=== PATIENT | male | born 1970 | race Caucasian/White ===

== ENCOUNTER 2017-12-04 17:23 | Emergency (ER) | payer SELFPAY ==
[~2017-12-04] VITALS: Ht 162.6 cm; Wt 68.0 kg
[2017-12-04 17:28] VITALS: BP 147/92; PULSE 119; RESP 20; TEMP 98.2; O2SAT 98
[2017-12-04 17:36] VITALS: BP 150/91; PULSE 93; RESP 17; TEMP 98.5; O2SAT 100
[2017-12-04] MEDS ORDERED: ceFAZolin 2 GM PREMIX 50 ML IV ONE (17:45)
[2017-12-04] MEDS ORDERED: LIDOCAINE HCL 1% 30 ML VIAL INFIL ONE (17:45)
[2017-12-04] MEDS ORDERED: MORPHINE SULFATE 4 MG/ML INJ IV PUSH ONE (17:45)
[2017-12-04] MEDS ORDERED: TETANUS/DIPHTHERIA TOXOID ADULT 0.5 ML VIAL IM ONE (17:45)
[2017-12-04] MEDS ORDERED: BUPIVACAINE HCL PF 0.5% 30 ML VIAL INFIL ONE (17:45)
[2017-12-04] MEDS ORDERED: ONDANSETRON HCL 4 MG/2 ML VIAL IV PUSH ONE (17:45)
[2017-12-04] MEDS ORDERED: SODIUM CHLOR 0.9% 1000 ML INJ 1,000 ML IV ONE (17:51)
[2017-12-04] MEDS ORDERED: ceFAZolin 2 GM PREMIX 50 ML ONE (18:11)
[2017-12-04] MEDS ORDERED: LIDOCAINE HCL 1% PF 30 ML VIAL ONE (18:11)
--- NOTE | 2017-12-04 18:49 | PD ---
HPI . Hand injury Chief Complaint: Injury Time Seen by Provider: 17:39 Travel History International Travel<30 days: No Contact w/Intl Traveler<30days: No Traveled to known affect area: No History of Present Illness HPI This patient presents status post an injury to his right the blade still growing. He is unable to tell us the date of his last tetanus shot. He reports no known drug allergies. The incident occurred just prior to presentation. Pain is initially 7/10. PFSH Past Medical History Medical History: Denies Significant Hx Diminished Hearing: No Tetanus Vaccination: > 5 Years Influenza Vaccination: No Past Surgical History Surgical History: No Previous Surgery Social History Alcohol Use: Yes (Rare) Tobacco Use: No Substance Use: No Allergies-Medications (Allergen,Severity, Reaction): Coded Allergies: No Known Allergies (Unverified , 12/04/17) Reported Meds & Prescriptions Reported Meds & Active Scripts Active No Active Prescriptions or Reported Medications Review of Systems Except as stated in HPI: all other systems reviewed are Neg Physical Exam Narrative GENERAL: Awake and alert and in no acute distress. SKIN: Warm and dry. HEAD: Normocephalic/atraumatic. EYES: Pupils are equal. Extraocular movements are intact. NECK: Normal range of motion. RESPIRATORY: Nonlabored respirations. MUSCULOSKELETAL: The tips of the right third and fourth fingers are amputated. I do not believe that there is any bony involvement NEUROLOGICAL: Nonfocal. PSYCHIATRIC: Appropriate mood and affect. Data Data Last Documented VS Vital Signs Date Time Temp Pulse Resp B/P (MAP) Pulse Ox O2 Delivery O2 Flow Rate FiO2 12/04/17 18:21 17 12/04/17 17:36 98.5 93 150/91 (110) 100 12/04/17 17:36 Room Air Orders Orders Lidocaine 1% Inj (Xylocaine 1% Inj) (12/04/17 17:45) Bupivacaine Pf 0.5% Inj (Marcaine Pf 0.5 (12/04/17 17:45) ^ Saline Lock (12/04/17 17:40) Ondansetron Inj (Zofran Inj) (12/04/17 17:45) Tetanus/Diphtheria Tox Adult (Tetanus/Di (12/04/17 17:45) Morphine Inj (Morphine Inj) (12/04/17 17:45) Cefazolin 2 Gm Premix (Ancef 2 Gm Premix (12/04/17 17:45) Diet Npo (12/04/17 Dinner) Activity Bed Rest (12/04/17 ) Electrocardiogram (12/04/17 ) Neuro Checks Q2HX12,Q4H (12/04/17 17:51) Nursing Bedside Swallow Assess .ONCE (12/04/17 17:51) Resp Oxygen Nc Stroke (12/04/17 ) Sodium Chlor 0.9% 1000 Ml Inj (Ns 1000 M (12/04/17 17:51) (Hub Use Only)Inp Phy Cons/Ref (12/04/17 ) Lidocaine Pf 1% Inj (Xylocaine-Mpf 1% In (12/04/17 18:11) Cefazolin 2 Gm Premix (Ancef 2 Gm Premix (12/04/17 18:11) Hand, Complete ([id number]) (12/04/17 18:39) MDM Medical Decision Making Medical Screen Exam Complete: Yes Emergency Medical Condition: Yes Differential Diagnosis Differential diagnosis includes but is not limited to skin laceration, muscular laceration, tendon laceration, neurovascular laceration. Narrative Course This patient presents status post a lawnmower injury involving the tips of the right third and fourth fingers. It appears to be a "flush wound." I do not believe that there is any bony involvement. The patient's tetanus has been updated. He has been given Ancef 2 g IV. He was given morphine for pain. A digital block was then performed. He will be sent for x-rays. His care is being turned over to Dr. Lopez at change of shift. Diagnosis Primary Impression: Amputated finger Qualified Codes: S68.119A - Complete traumatic metacarpophalangeal amputation of unspecified finger, initial encounter Scripts No Active Prescriptions or Reported Meds Condition: Liliana Yost MD Dec 04, 2017 18:49
[2017-12-04 19:16] VITALS: BP 161/94; PULSE 72; RESP 16; O2SAT 97
--- NOTE | 2017-12-04 19:28 | RADRPT ---
EXAM DATE/TIME: 12/04/2017 18:54 [facility] COMPARISON: No previous studies available for comparison. INDICATIONS : Patient had right hand caught in welder assembler blades. Lacerations to tuft of 3rd and 4th digits. MEDICAL HISTORY : None. SURGICAL HISTORY : None. ENCOUNTER: Initial ACUITY: 1 day PAIN SCORE: 9/10 LOCATION: Right Hand, 3rd and 4th chrissy. FINDINGS: There is a soft tissue injury the distal soft tissues of the third digit and to a lesser degree fourt h digit. The bony structures appear intact. The soft tissue injury extends down to the level of the d istal aspect of the distal phalanxes of the third and fourth digits. CONCLUSION: Soft tissue injury without definite bony injury at the distal aspect of the third and fourth digits. Uvaldo Munoz MD on December 04, 2017 at 19:24 Board Certified Radiologist. This report was verified electronically.
--- NOTE | 2017-12-04 19:37 | PD ---
Physical Exam Narrative Patient was seen by ED physician and signed out to me. Patient has lumbar injury the distal phalange of the right third and fourth fingers. Data Data Last Documented VS Vital Signs Date Time Temp Pulse Resp B/P (MAP) Pulse Ox O2 Delivery O2 Flow Rate FiO2 12/04/17 19:16 72 16 161/94 (116) 97 Room Air 12/04/17 17:36 98.5 Orders Orders Lidocaine 1% Inj (Xylocaine 1% Inj) (12/04/17 17:45) Bupivacaine Pf 0.5% Inj (Marcaine Pf 0.5 (12/04/17 17:45) ^ Saline Lock (12/04/17 17:40) Ondansetron Inj (Zofran Inj) (12/04/17 17:45) Tetanus/Diphtheria Tox Adult (Tetanus/Di (12/04/17 17:45) Morphine Inj (Morphine Inj) (12/04/17 17:45) Cefazolin 2 Gm Premix (Ancef 2 Gm Premix (12/04/17 17:45) Diet Npo (12/04/17 Dinner) Activity Bed Rest (12/04/17 ) Neuro Checks Q2HX12,Q4H (12/04/17 17:51) Nursing Bedside Swallow Assess .ONCE (12/04/17 17:51) Resp Oxygen Nc Stroke (12/04/17 ) Sodium Chlor 0.9% 1000 Ml Inj (Ns 1000 M (12/04/17 17:51) (Hub Use Only)Inp Phy Cons/Ref (12/04/17 ) Lidocaine Pf 1% Inj (Xylocaine-Mpf 1% In (12/04/17 18:11) Cefazolin 2 Gm Premix (Ancef 2 Gm Premix (12/04/17 18:11) Hand, Complete (Xyc9vci) (12/04/17 18:39) Lidocai-Epi 1%-1:100,000 Inj (Xylocaine- (12/04/17 20:00) Lidocai-Epi 1%-1:100,000 Inj (Xylocaine- (12/04/17 20:43) MDM Supervised Visit with LOVE: No Narrative Course Patient was seen by ED physician and signed out to me. Patient has soft tissue injury to the distal phalanx of the right third and fourth fingers. Ancef 2 g IV given. Td booster given. Fingers injury was repaired by hand surgeon . Diagnosis Primary Impression: Amputated finger Qualified Codes: S68.119A - Complete traumatic metacarpophalangeal amputation of unspecified finger, initial encounter Patient Instructions: General Instructions Additional Instruction: Wound care daily. Take medications as directed. Follow-up with hand surgeon in 4 days. Med/Other Pt SpecificInfo: Prescription(s) given Scripts Cephalexin (Keflex) 500 Mg Capsule 500 MG PO TID for Infection, #21 CAP 0 Refills Prov: Frederic Lopez MD 12/04/17 Ibuprofen (Ibuprofen) 600 Mg Tab 600 MG PO TID for Pain, #60 TAB 0 Refills Prov: Frederic Lopez MD 12/04/17 Hydrocodone-Acetaminophen ([place]) 5 Mg-325 Mg Tab 1 TAB PO Q6H Y for PAIN, #20 TAB 0 Refills Prov: Frederic Lopez MD 12/04/17 Disposition: 01 DISCHARGE HOME Condition: Stable Frederic Lopez MD Dec 04, 2017 19:37
[2017-12-04] MEDS ORDERED: LIDOCAINE 1%/EPINEPHrine 1:100,000 SOLN 20 ML VIAL INFIL ONE (20:00)
[2017-12-04] MEDS ORDERED: LIDOCAINE 1%/EPINEPHrine 1:100,000 SOLN 30 ML VIAL ONE (20:43)
[2017-12-04] MEDS ORDERED: CEPH-460 PO (21:16)
[2017-12-04] MEDS ORDERED: IBUP-232 PO (21:16)
[2017-12-04] MEDS ORDERED: NORC5TAB PO (21:16)
--- NOTE | 2017-12-05 16:04 | PD.CONS ---
History of Present Illness Service This consult note is from 12/04/2017 at roughly 8 PM Hand surgery Consult Requested By Emergency department Reason for Consult Right ring finger and middle fingertip lacerations Primary Care Physician No Primary Care Physician Diagnoses: (1) Finger, open wounds, complicated History of Present Illness This is a 47-year-old male who presents to emergency department after sustaining right ring finger and middle fingertip complex lacerations after attempting to clean his lawnmower with his fingers while it was running. Emergency department physician Dr. Lopez has given the patient is tetanus booster and had already digitally blocked the patient. At the time of meeting the patient, he denied pain as his fingers were still blocked. He denied previous injuries to his hands. He reported the pain had been limited to his fingertips and was sharp and constant since the injury which occurred immediately before he came to the hospital. Review of Systems Except as noted in the HPI review of systems negative to presenting complaint Past Family Social History Allergies: Coded Allergies: No Known Allergies (Unverified , 12/04/17) Past Medical History Patient denies Past Surgical History Patient denies Reported Medications Patient denies Family History Negative to presenting complaint Social History Occasional alcohol patient denies tobacco Physical Exam Vital Signs Vital Signs Date Time Temp Pulse Resp B/P (MAP) Pulse Ox O2 Delivery O2 Flow Rate FiO2 12/04/17 22:02 12/04/17 19:16 72 16 161/94 (116) 97 Room Air 12/04/17 18:21 17 12/04/17 17:36 98.5 93 17 150/91 (110) 100 12/04/17 17:36 99 16 99 Room Air 12/04/17 17:28 98.2 119 20 147/92 (110) 98 Physical Exam No apparent anxiety alert and oriented 3 moist mucous membranes PERRLA skin without rash respirations nonlabored gait within normal limits unaffected digits warm well perfused Unable to examine sensation of affected digits due to ED digital block Full active range of motion Patient denies pain elsewhere Right ring finger and middle fingertip with complex lacerations, each roughly 2- 2-1/2 cm in length with tattered edges and several necrotic parts several millimeters in length Both lacerations are oriented coronally just volar to the distal phalangeal bone Ring finger with easily palpable bone, though sufficient soft tissue covering Ring finger sterile matrix appears intact as does nail plate Neither finger has subungual hematoma Volar flap of ring finger able to be approximated to hyponychium without excessive tension Regarding middle finger, there appears significant tissue loss with exposed bone Distal third of nail plate and sterile matrix avulsed Volar flap of pulp nonviable Imaging Three-view x-ray images of the right hand personally reviewed by me showing soft tissue injury to the distal middle finger and ring finger without clinically significant osseous injury Assessment and Plan Problem List: (1) Finger, open wounds, complicated ICD Codes: S61.209A - Unspecified open wound of unspecified finger without damage to nail, initial encounter Assessment and Plan 47-year-old male with right ring finger and middle finger lacerations Risks benefits and alternative treatments discussed at length with patient Middle finger unable to be closed without shortening of distal phalangeal bone All questions answered and patient expressed understanding Patient therefore elected to assume the risks of washout of his wounds, debridement of nonviable tissue, right ring finger complex wound laceration repair, and middle finger V to Y volar advancement flap Informed consent obtained Both wounds extensively scrubbed with Betadine Nonviable aspects debrided Procedure well-tolerated with excellent coverage of bone P.o. antibiotics Patient to leave dressing in place until seeing me in clinic this Thursday Patient expresses understanding of above and agreement with plan Tal Campos MD Dec 05, 2017 16:04
== END 2017-12-04 22:00 | disposition home or self-care (01) ==
LOC: NEPC 17:23
DX: S68.112A Complete traumatic metacarpophalangeal amputation of right middle finger, initial encounter (principal); S61.214A Laceration without foreign body of right ring finger without damage to nail, initial encounter; W28.XXXA Contact with powered lawn mower, initial encounter; Z23 Encounter for immunization
CPT/HCPCS: 13131; 14040; 73130; 90471; 90714; 96365; 96375; 99284; J0690; J2270; J2405; J7030